=== PATIENT | male | born 1960 | race Caucasian/White ===

== ENCOUNTER → 2017-07-23 | Outpatient (CLI) | payer OTHER | LOC: BMCIMAGING 07:32 | PROVIDERS: ATTEND Internal Medicine | DX: M50.30 Other cervical disc degeneration, unspecified cervical region (principal); M89.38 Hypertrophy of bone, other site | CPT/HCPCS: 76536-PO ==

== ENCOUNTER → 2017-09-22 | Outpatient (CLI) | payer OTHER ==
[~2017-09-22] MED LIST: GADOBUTROL 10 ML VIAL IVP ONE
== END ==
LOC: FIMAGING 15:59
PROVIDERS: ATTEND Physical Medicine & Rehabilitation
DX: D16.8 Benign neoplasm of pelvic bones, sacrum and coccyx (principal); M51.37 Other intervertebral disc degeneration, lumbosacral region
CPT/HCPCS: A9585

== ENCOUNTER → 2017-11-25 | Outpatient (CLI) | payer OTHER | LOC: FIMAGING 07:28 | PROVIDERS: ATTEND Neurological Surgery | DX: M51.16 Intervertebral disc disorders with radiculopathy, lumbar region (principal); M46.97 Unspecified inflammatory spondylopathy, lumbosacral region; M53.3 Sacrococcygeal disorders, not elsewhere classified | CPT/HCPCS: A9585 ==

== ENCOUNTER → 2018-02-15 | Outpatient (CLI) | payer OTHER | LOC: FIMAGING 10:36 | PROVIDERS: ATTEND Physician Assistant | DX: M53.3 Sacrococcygeal disorders, not elsewhere classified (principal); M54.16 Radiculopathy, lumbar region | CPT/HCPCS: A9585 ==

== ENCOUNTER → 2018-08-27 | Outpatient (CLI) | payer OTHER | LOC: FIMAGING 06:45 | PROVIDERS: ATTEND Physician Assistant | DX: M54.16 Radiculopathy, lumbar region (principal); M53.3 Sacrococcygeal disorders, not elsewhere classified | CPT/HCPCS: A9585 ==

== ENCOUNTER 2018-10-04 15:43 | Emergency (ER) | payer OTHER ==
--- NOTE | 2018-10-04 17:20 | EDPHY ---
H & P Time Seen by Provider: 10/04/18 16:58 HPI/ROS: CHIEF COMPLAINT: Headache HISTORY OF PRESENT ILLNESS: Patient has been having headache continuously and intermittently for the past 6-7 years. He had multiple evaluations including a negative MRI 2 years ago. About 9 months ago he started getting better and less frequent but about 2 weeks ago he had a cold with much a head congestion and for the last 10 days he has had recurrent headaches which are typical once for him. For the last 10 days ago headache behind his eyes radiates to the back of his head, a couple of days ago he had a fever to about 100 degrees at home. He thinks this might be is sinuses and saw ENT today. He was started on amoxicillin 5 days ago which did not help and Daylin Ortiz at ENT started him on prednisone and ordered CT. He has associated nausea but no neck pain or weakness or numbness in extremities. Little bit of left ear fullness but no sore throat or dental symptoms or facial pain. No swelling. No difficulty breathing or swallowing. No neck stiffness. No recent head trauma or injury. REVIEW OF SYSTEMS: Eye: no change in vision ENT: HPI Cardiac: no chest pain or syncope Pulmonary: no cough or SOB Abdomen: no vomiting, diarrhea, abdominal pain Musculoskeletal: no back pain Skin: no rash Neuro: HPI Constitutional: HPI : no urinary symptoms A comprehensive 10 point review of systems is otherwise negative aside from elements mentioned in the history of present illness. PAST MEDICAL HISTORY: Includes headaches, depression, ankylosing spondylitis on Humira, back surgery with postoperative infection Social history: , no recent foreign travel General Appearance: Alert and conversant, cooperative. Eyes: No scleral icterus. Pupils equal reactive extraocular motion intact. ENT, Mouth: Normal mucous membranes. Normal pharynx. No facial tenderness. Normal tympanic membranes. Respiratory: Normal respiratory effort, breath sounds equal, lungs are clear to auscultation. Cardiovascular: Regular rate and rhythm. Gastrointestinal: Abdomen is soft and non tender. Neurological: Alert, face symmetric, normal motor and sensory in extremities. Normal [id number] and no pronator drift. Speech fluent. Skin: Warm and dry, no rashes. No petechiae or purpura. Musculoskeletal: No neck stiffness, no meningeal signs. Psychiatric: Not agitated. Emergency Department course/MDM: Plan for Reglan 10, Benadryl 25, dexamethasone 10. CT noncontrast of the head for severe headache, discussed and consented. 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 1816: left maxillary sinusitis, Dr. Dago Mitchell, intracranial is negative. 1844: headache improved. Will advise him to continue his treatment for sinusitis, he feels a lot better, no additional treatment for headache required at this time. Smoking Status: Never smoked Constitutional: Initial Vital Signs Temperature (C) 36.4 C 10/04/18 15:49 Heart Rate 70 10/04/18 15:49 Respiratory Rate 16 10/04/18 15:49 Blood Pressure 127/74 H 10/04/18 15:49 O2 Sat (%) 90 L 10/04/18 15:49 O2 Delivery Mode Room Air Allergies/Adverse Reactions: No Known Allergies Allergy (Verified 02/07/15 22:53) Home Medications: Medication Instructions Recorded Zolpidem Tartrate [Ambien 10 mg] 10 mg PO 02/07/15 Amoxicillin 10/04/18 Humira 10/04/18 Prednisone 10/04/18 traMADol 10/04/18 Medical Decision Making - Diagnostics Imaging Results: Imaging Impressions Head CT 10/04/18 17:36 Impression: 1. Negative for intracranial abnormality. 2. Left maxillary sinusitis. Results called and discussed with SONNY CARDENAS M.D. on 10/04/2018 at 18:17. Imaging: Discussed imaging studies w/ freight caller Radiologist Differential Diagnosis: Differential diagnosis considered for headache including but not limited to subarachnoid hemorrhage, migraine headache, tension headache and infectious causes such as meningitis, pharyngitis and sinusitis. - Data Points Medications Given: Discontinued Medications Dexamethasone (Decadron Injection) 10 mg IVP EDNOW ONE Stop: 10/04/18 17:37 Last Admin: 10/04/18 17:42 Dose: 10 mg Diphenhydramine HCl (Benadryl Injection) 25 mg IVP EDNOW ONE Stop: 10/04/18 17:37 Last Admin: 10/04/18 17:42 Dose: 25 mg Sodium Chloride (Ns) 1,000 mls @ 0 mls/hr IV ONCE ONE; Wide Open PRN Reason: Protocol Stop: 10/04/18 17:37 Last Admin: 10/04/18 17:36 Dose: 1,000 mls Metoclopramide HCl (Reglan Injection) 10 mg IVP EDNOW ONE Stop: 10/04/18 17:37 Last Admin: 10/04/18 17:42 Dose: 10 mg Departure - Departure Disposition: Home, Routine, Self-Care Clinical Impression: Headache Qualifiers: Headache type: unspecified Headache chronicity pattern: unspecified pattern Intractability: not intractable Qualified Code(s): R51 - Headache Maxillary sinusitis Qualifiers: Chronicity: unspecified Qualified Code(s): J32.0 - Chronic maxillary sinusitis Condition: Good Instructions: Sinusitis (ED), Acute Headache (ED) Additional Instructions: Steam shower as discussed. Left maxillary sinusitis on your CT scan. Continue amoxicillin as already prescribed. Please follow-up with ENT this week in the office. Referrals: Bill Ogden MD [Primary Care Provider] - As per Instructions Daylin Ortiz PA [Physician Gyroscopic Instrument Mechanic] - As per Instructions
[2018-10-04] MEDS ORDERED: NS 1,000 ML IV ONE (17:36)
[2018-10-04] MEDS ORDERED: DEXAMETHASONE 10 MG/ML VIAL IVP ONE (17:36)
[2018-10-04] MEDS ORDERED: METOCLOPRAMIDE 10 MG/2 ML VIAL IVP ONE (17:36)
[2018-10-04 19:07] VITALS: BP 107/64
== END 2018-10-04 19:05 | disposition home or self-care (01) ==
DX: R51 Headache (principal); J32.0 Chronic maxillary sinusitis
CPT/HCPCS: 96374; J1100; J1200; J2765